=== PATIENT | female | born 1945 | race Caucasian/White ===

== ENCOUNTER 2016-06-23 21:26 | Observation (INO) | payer MEDICARE ==
[~2016-06-23] VITALS: Ht 160 cm; Wt 63.6 kg
--- NOTE | 2016-06-23 23:04 | DIAGNOSTIC IMAGING REPORT ---
PROCEDURE: XR CHEST 2 VIEW INDICATION: Shortness of breath. History of pulmonary fibrosis. Elevated white blood count taking 1600). TECHNIQUE: PA and lateral views. COMPARISON: None. FINDINGS: There is severe interstitial changes in the lungs which appear chronic , although a superimposed acute pneumonia should also be considered. Associated suboptimal inspiration Heart and mediastinum are normal. Thorax is normal. IMPRESSION: 1. Severe interstitial changes with suboptimal inspiration this suggests chronic interstitial fibrosis, although superimposed acute pneumonia should also be considered.
--- NOTE | 2016-06-24 01:50 | ED ORDER SUMMARY ---
..... Patient: RICARDO GAFFNEY OrderSheet [facility] VisitID: [id number] [place] [address] 71y, F Registration Date/Time: 06/23/2016 ORDER SHEET Weight: 63.5 kg (stated) Allergies: No Known Drug Allergy GENERAL ORDERS: CBC w Diff Urgent (21:45 06/23/2016 Momo Sow) (Ack 21:47 AMcQuoid ER Tech1) (22:09 EInderbitzen R.N.) CMP Urgent (21:45 06/23/2016 Momo Sow) (Ack 21:47 AMcQuoid ER Tech1) (22:09 EInderbitzen R.N.) Chest 2V Urgent (22:04 06/23/2016 Momo Sow) (Ack 22:11 AMcQuoid ER Tech1) (22:22 MCampbell) Feeder Catcher Tobacco (Continuous) (Respiratory Distress) (22:05 06/23/2016 Momo Sow) (22:08 EInderbitzen R.N.) Troponin-I Urgent (22:05 06/23/2016 Momo Sow) (22:09 EInderbitzen R.N.) BNP Urgent (22:05 06/23/2016 Momo Sow) (22:09 EInderbitzen R.N.) UA-Culture if indicated Urgent (22:06/23/2016 Momo Sow) (Ack 22:11 AMcQuoid ER Tech1) (0:05 EInderbitzen R.N.) Pulse oximeter (22:05 06/23/2016 Momo Sow) (22:08 EInderbitzen R.N.) Oxygen (2 L/min) (NC) (22:05 06/23/2016 Momo Sow) (22:08 EInderbitzen R.N.) Blood Culture (No) (N/A) Urgent (23:45 06/23/2016 Momo Sow) (Ack 23:57 AMcQuoid ER Tech1) (0:18 KHoerner) MEDICATION ORDERS: IV FLUIDS: IV NS : initial bolus 1000 mL (1000 mL/hr), then none - for X1 (NOW) (21:44 06/23/2016 Momo Sow) (Cancelled: Change in patient [id number] Momo Sow) IV Saline Lock (22:05 06/23/2016 Momo Sow) (22:08 EInderbitralph R.N.) Ceftriaxone IV 2 gm/50mL (NOW) (23:45 06/23/2016 Momo Sow) (0:29 EInderbitzen R.N.) Azithromycin IV 500 mg/250 mL (NOW) (23:45 06/23/2016 Momo Sow) (0:57 EInderbitzen R.N.) ORDER SHEET NOTES: [Electronically signed by Nereida Herring R.N. (02:17 06/24/2016)] [Electronically signed by Mohan Garces Dr. (04:04 06/26/2016)] [Electronically locked/signed by Nereida Herring R.N. (02:17 06/24/2016)]
--- NOTE | 2016-06-24 01:50 | ED ORDER SUMMARY ---
..... Patient: RICARDO GAFFNEY OrderSheet [facility] VisitID: [id number] [place] [address] 71y, F Registration Date/Time: 06/23/2016 ORDER SHEET Weight: 63.5 kg (stated) Allergies: No Known Drug Allergy GENERAL ORDERS: CBC w Diff Urgent (21:45 06/23/2016 Momo Sow) (Ack 21:47 AMcQuoid ER Tech1) (22:09 EInderbitzen R.N.) CMP Urgent (21:45 06/23/2016 Momo Sow) (Ack 21:47 AMcQuoid ER Tech1) (22:09 EInderbitzen R.N.) Chest 2V Urgent (22:04 06/23/2016 Momo Sow) (Ack 22:11 AMcQuoid ER Tech1) (22:22 MCampbell) Bottom Crane Operator (Continuous) (Respiratory Distress) (22:05 06/23/2016 Momo Sow) (22:08 EInderbitzen R.N.) Troponin-I Urgent (22:05 06/23/2016 Momo Sow) (22:09 EInderbitzen R.N.) BNP Urgent (22:05 06/23/2016 Momo Sow) (22:09 EInderbitzen R.N.) UA-Culture if indicated Urgent (22:06/23/2016 Momo Sow) (Ack 22:11 AMcQuoid ER Tech1) (0:05 EInderbitzen R.N.) Pulse oximeter (22:05 06/23/2016 Momo Sow) (22:08 EInderbitzen R.N.) Oxygen (2 L/min) (NC) (22:05 06/23/2016 Momo Sow) (22:08 EInderbitzen R.N.) Blood Culture (No) (N/A) Urgent (23:45 06/23/2016 Momo Sow) (Ack 23:57 AMcQuoid ER Tech1) (0:18 KHoerner) MEDICATION ORDERS: IV FLUIDS: IV NS : initial bolus 1000 mL (1000 mL/hr), then none - for X1 (NOW) (21:44 06/23/2016 Momo Sow) (Cancelled: Change in patient [id number] Momo Sow) IV Saline Lock (22:05 06/23/2016 Momo Sow) (22:08 EInderbitralph R.N.) Ceftriaxone IV 2 gm/50mL (NOW) (23:45 06/23/2016 Momo Sow) (0:29 EInderbitzen R.N.) Azithromycin IV 500 mg/250 mL (NOW) (23:45 06/23/2016 Momo Sow) (0:57 EInderbitzen R.N.) ORDER SHEET NOTES: [Electronically signed by Nereida Herring R.N. (02:17 06/24/2016)] [Electronically signed by Mohan aGrces Dr. (04:04 06/26/2016)] [Electronically locked/signed by Nereida Herring R.N. (02:17 06/24/2016)]
--- NOTE | 2016-06-24 01:50 | ED CLINICAL REPORT ---
Clinical Report - Physicians/Mid Levels [facility] [address] [place] [address] 06/23/2016 21:29 Patient: RICARDO GAFFNEY Time Seen: 2150; initial patient contact. Arrived- By private vehicle. Historian- patient. HISTORY OF PRESENT ILLNESS Chief Complaint: ABNORMAL BLOOD CULTURE. This started today and is still present (staying the same). It was abrupt in onset and has been constant but is not gone now. At its maximum, severity described as moderate. When seen in the E.D., severity described as moderate. Modifying factors. Not worsened by anything. Not relieved by anything. No loss of appetite. (baseline SOB on home O2. No new symptoms. Has been generally weak for the past few days. Did fall about a week ago and hurt tail bone. States the skin is doing fine. Does not want to be checked down there at this time. No other new symptoms.). Similar symptoms previously: None. Recent medical care: The patient was seen recently by a health care provider (urgent care). ( Elevated WBC. Wanted patient to go to the nearest ED.). REVIEW OF SYSTEMS No fever, sore throat, sinus drainage, nasal congestion or cough. No chest pain, abdominal pain, diarrhea, black stools or bloody stools. No difficulty with urination, skin rash or headache. All systems otherwise negative, except as recorded above. PAST HISTORY See nurses notes. Medications: Citalopram Hydrobromide Oral (Tablet 20 mg) 1 tablet, daily. Oxygen 4 liters 23/10. Cholesterol pill. Baby Aspirin 81 mg, daily. Allergies: No Known Drug Allergy. SOCIAL HISTORY Never smoker. No alcohol use or drug use. No recent travel. Is a local resident. PHYSICAL EXAM Appearance: Alert. No acute distress. Eyes: Pupils equal, round and reactive to light. Eyes normal inspection. ENT: Ears normal. Nose normal. Pharynx normal. Neck: Normal inspection. Neck supple. CVS: Normal heart rate and rhythm. Heart sounds normal. Pulses normal. Respiratory: No respiratory distress. Breath sounds normal. Chest nontender. Abdomen: No visible injury. Soft and nontender. Bowel sounds normal. No mass. Skin: Skin warm and dry. Normal skin color. No rash. Normal skin turgor. Extremities: Extremities exhibit normal ROM. No lower extremity edema. Neuro: Oriented X 3. No motor deficit. No sensory deficit. LABS, X-RAYS, AND EKG Chest X-ray: (PROCEDURE: XR CHEST 2 VIEW INDICATION: Shortness of breath. History of pulmonary fibrosis. Elevated white blood count taking 1600). TECHNIQUE: PA and lateral views. COMPARISON: None. FINDINGS: There is severe interstitial changes in the lungs which appear chronic , although a superimposed acute pneumonia should also be considered. Associated suboptimal inspiration Heart and mediastinum are normal. Thorax is normal. IMPRESSION: 1. Severe interstitial changes with suboptimal inspiration this suggests chronic interstitial fibrosis, although superimposed acute pneumonia should also be considered.). Laboratory Tests: UA-Culture if indicated: (UMESH: 06/23/2016 23:40) ( [facility] 06/24/2016 00:04) Final results Test Result Flag Units (Reference) URINE COLOR YELLOW URINE APPEARANCE CLEAR URINE GLUCOSE NEGATIVE (NEGATIVE) URINE BILIRUBIN NEGATIVE (NEGATIVE) URINE KETONE NEGATIVE (NEGATIVE) URINE SPECIFIC GRAVITY 1.020 (1.010-1.030) URINE PH 6.0 (5.0-8.0) URINE PROTEIN NEGATIVE (NEGATIVE) URINE UROBILINOGEN 0.2 EU/dL (0.2-1.0) URINE NITRITE NEGATIVE (NEGATIVE) URINE BLOOD NEGATIVE (NEGATIVE) URINE LEUK ESTERASE POSITIVE (NEGATIVE) URINE RBC NONE SEEN rbc/hpf (0-1) URINE WBC 3-5 wbc/hpf (0-1) URINE EPITHELIAL CELLS 3-5 EPI/hpf (0-5) URINE BACTERIA MODERATE (2+ TO 3+) (NONE SEEN) 2+ URINE COMMENT CULTURE INDICATED URINE CULTURES ARE SET-UP BASED ON THE FOLLOWING CRITERIA:POSITIVE NITRITEPOSITIVE LEUKOCYTE ESTERASEGREATER THAN 10 WHITE BLOOD CELLSMODERATE (2+) OR GREATER BACTERIA CBC w Diff: (UMESH: 06/23/2016 21:55) ( [facility] 06/23/2016 22:05) Final results Test Result Flag Units (Reference) WHITE BLOOD COUNT 18.6 H K/uL (4.5-11.5) RED BLOOD COUNT 3.93 L M/uL (4.00-5.20) HEMOGLOBIN 9.5 L gm/dL (12.0-16.0) HEMATOCRIT 30.2 L % (36.0-46.0) MEAN CELL VOLUME 77 L fL (80-100) MEAN CORPUSCULAR HGB 24 L pg (26-34) MEAN CORPUSCULAR HGB CONC 32 g/dL (31-37) RED CELL DISTRIBUTION WIDTH 14.8 % (11.6-14.8) PLATELET COUNT 586 H K/uL (150-400) NEUTROPHIL % 59.6 % (50-75) LYMPH % 29.0 % (25-40) MONO % 8.2 % (3-14) EOSINOPHIL % 2.9 % (0-4) BASOPHIL % 0.3 % (0-2) BNP: (UMESH: 06/23/2016 21:55) ( [facility] 06/23/2016 22:35) Final results Test Result Flag Units (Reference) B-TYPE NATRIURETIC PEPTIDE 33.8 pg/ml (5-100) Troponin-I: (UMESH: 06/23/2016 21:55) ( [facility] 06/23/2016 22:38) Final results Test Result Flag Units (Reference) TROPONIN I <0.05 ng/mL (0.00-1.5) TROPONIN REFERENCE RANGE:<0.1 NEGATIVE0.1-1.5 INDETERMINANT>1.5 POSITIVE CMP: (UMESH: 06/23/2016 21:55) ( [facility] 06/23/2016 22:16) Final results Test Result Flag Units (Reference) GLUCOSE 153 H mg/dL (70-110) BUN 14 mg/dL (7-18) CREATININE 0.8 mg/dL (0.6-1.3) Estimated GFR >60 mL/min Estimated GFR- >60 mL/min Note: Persistent reduction over 3 months in eGFR<60 mL/min/1.73 m2 defines CKD. Patients with eGFR values>=60 mL/min/1.73 m2 may also have CKD if evidence ofpersistent proteinuria. Additional information may be foundat www.kidney.org. SODIUM 134 L mmol/L (136-145) POTASSIUM 4.5 mmol/L (3.5-5.1) CHLORIDE 98 mmol/L (98-107) CARBON DIOXIDE 30 mmol/L (21-32) CALCIUM 8.8 mg/dL (8.5-10.1) TOTAL PROTEIN 8.4 H g/dL (6.4-8.2) ALBUMIN 2.8 L g/dL (3.3-5.0) BILIRUBIN, TOTAL 0.3 mg/dL (0.0-1.0) ALKALINE PHOSPHATASE 84 U/L (46-116) AST (SGOT) 40 H U/L (15-37) ALT (SGPT) 17 U/L (12-78) . PROGRESS AND PROCEDURES Course of Care: The patient is a pleasant 71-year-old female presenting for evaluation of elevated white blood cell count that was found outside facility. Patient was encouraged to go to the emergency department. Additionally, the patient is also been having increased worsening of her shortness of breath. Patient with a past medical history significant for pulmonary fibrosis. Laboratory evaluation including chest x-ray, urinalysis, complete blood cell count and electorally Parkinson ordered. Patient is agreeable to the treatment and plan. Vital signs aremarkable for the findings above. Of the patient's workup was remarkable for the findings above. Chest x-ray is concerning for bilateral pneumonia. Because of the patient's age and the laboratory studies with elevated white blood cell count, feel the patient is at high risk for acute decompensation if she is to return home. Patient likely with low reserve capacity. Would be concern for poor outcome as an outpatient. I discussion with patient in regards to admission to the hospital. Patient is agreeable. Spoke with the accepting hospitalist. No further recommendations made. Blood cultures as well as antibiotics have been ordered. Discussed with patient and family her workup here in the emergency department as well as plan of care and diagnosis. All questions have been answered. The patient will be admitted to the hospital for further management of herelevated blood pulse ox on and pneumonia. Patient is a stable for patient. Do not feel patient needs to be admitted to the intensive care unit at this time. Prior to patient's department from the emergency department she is noted to be resting in bed in no acute distress. Patient is in good spirits. Disposition: Admitted to Acute Care. (Electronically signed by Mohan Garces Dr. 06/26/2016 4:04)
--- NOTE | 2016-06-24 01:50 | ED NURSING NOTES ---
Clinical Report - Nurses [facility] [address] [place] [address] 06/23/2016 21:29 [id number] Triage time 21:40 Jun 23 2016. Acuity: LEVEL 2. Chief Complaint: (Eval of leukocytosis.). 21:40 06/23/16. SEPSIS SCREEN: Sepsis Screen. Infection suspected/documented. LY COMA SCORE: Sprakers Coma Scale: 15- eyes open spontaneously (4); best verbal response- oriented x 4 (5); best motor response- obeys commands (6). --21:52 Nereida Herring R.N. 21:43 06/23/16. BP: 140/90. HR: 83. RR: 20. O2 saturation: 99% on nasal cannula at 4 liters/minute. Temp: 97.9 F. Pain level now: 5/10. --21:52 Nereida Herring R.N. Weight: 63.5 kg stated. Height/Length: 63 inches Per Patient. BMI: 24.8. --21:40 Nereida Herring R.N. Medications Baby Aspirin 81 mg, daily. --21:48 Nereida Herring R.N. Cholesterol pill. --21:48 Nereida Herring R.N. Oxygen 4 liters 23/10. --21:49 Nereida Herring R.N. Citalopram Hydrobromide Oral (Tablet 20 mg) 1 tablet, daily. --21:53 Nereida Herring R.N. The following entry was struck and corrected by Nereida Herring R.N., 01:13 (06/24/16) Reason for correction - other(correction). <<STRICKEN ENTRY-- Citalopram Hydrobromide Oral. --21:53 Inderbitzen, Nereida, R.N. --END STRIKE>> The following entry was struck and corrected by Nereida Herring R.N., 01:12 (06/24/16) Reason for correction - other(correction). <<STRICKEN ENTRY-- Baby Aspirin. --21:48 Nereida Herring R.N. --END STRIKE>>. Allergies No Known Drug Allergy. --21:47 Nereida Herring R.N. Medication/allergy information source: the patient. --21:52 Nereida Herring R.N. History Arrived by private vehicle. Historian: patient. Accompanied by family. This started today. ( Feeling weak for the past week. Fell 1 wk ago, pain in tailbone. Dtr (RN) sent pt to urgent care for reportedly being pale. Pt reports increase in baseline shortness of breath over last few weeks. Denies chest pain. Urgent care state WBCs over 20K). She has had weakness. She has had a cough (increased frequency, mostly in morning). No fever or skin rash. Denies muscle aches. PAST MEDICAL HX: Immunizations: has received pneumonia vaccine; seasonal influenza. SOCIAL HX: Former smoker. No alcohol use or drug use. No infectious disease exposure. ABUSE ASSESSMENT: No report of abuse. SELF HARM ASSESSMENT: A self harm assessment was performed. The patient answered "no" to the question "Have you recently felt down, depressed, or hopeless?", "Have you noticed less interest or pleasure in doing things?", "Do you have thoughts of harming or killing yourself?", "Are you here because you tried to hurt yourself?", "Have you ever tried to hurt yourself before today?", "Have you recently had thoughts about harming or killing others?" and "Do you have any dangerous items in your possession?". NUTRITIONAL RISK ASSESSMENT: The nutritional risk assessment revealed no deficiencies. LEARNING NEEDS ASSESSMENT: The learning needs assessment revealed no barriers. FUNCTIONAL ASSESSMENT: Functional assessment performed: independent with the activities of daily living; uses walker- this mobility impairment is an ongoing problem; has poor vision in both eyes and wears glasses- this visual impairment is an ongoing problem. SKIN INTEGRITY ASSESSMENT: Skin integrity risk assessment completed. No skin integrity risk identified. --21:52 Nereida Herring R.N. PROBLEMS: Hypercholesterolemia. Gastroesophageal Reflux Disease. Pulmonary Fibrosis. --21:50 Nereida Herring R.N. Depression. --21:53 Nereida Herring R.N. ADDITIONAL SURGERIES: Tubal Ligation. --21:50 Nereida Herring R.N. Interventions ID band on patient. --21:52 Nereida Herring R.N. PHYSICAL ASSESSMENT 21:56 06/23/16. GENERAL / NEURO / PSYCH: Alert. Oriented X 4. HEENT: Pupils equal, round and reactive to light. RESPIRATORY: Respirations not labored. Coarse crackles present in the lower third of both lung cmcray. ( note Dyspnea on exertion). CVS: Pulses within normal limits. GI / : Abdomen soft. SKIN: Skin intact. Skin is warm and dry. Normal skin turgor. --21:56 Nereida Herring R.N. NURSING PROGRESS NOTES 21:53 06/23/16. The initial plan of care for this patient includes an assessment with efforts to address patient positioning; the presence of pain; impairment of the respiratory system. This plan of care was discussed with the patient. Pulse oximeter and NIBP monitor placed on patient; monitor alarms on. Patient gowned. Reassurance given. Two patient identifiers checked. Call light placed in reach. Side rails up x 1. Bed placed in lowest position. Brakes of bed on. Patient ready for evaluation- ED physician notified. --21:53 Nereida Herring R.N. 21:56 06/23/2016 Site #1 started via IV in the left antecubital space with an 20g angiocath, with aseptic technique and good blood return; one attempt. Blood drawn: rainbow set. Labeled in the presence of the patient and sent to the lab. Saline lock flushed with 10 mL saline. --21:56 Nereida Herring R.N. 22:38 06/23/16. BP: 148/77. HR: 90. RR: 18. O2 saturation: 98%. --22:38 Nereida Herring R.N. 22:38 06/23/16. The patient is calm and resting quietly. --22:38 Nereida Herring R.N. 23:45 06/23/16. Patient ID band checked for patient name and birthdate: patient confirmed. Instructions provided to collect clean catch urine and patient verbalized understanding. Clean catch urine collected with return of uriel-colored clear urine; sample sent to lab for urinalysis. Specimen labeled in the presence of the patient. --23:57 Nereida Herring R.N. 00:29 06/24/2016 Started 2 gm of Ceftriaxone IVPB in bag #1 50 mL; at 150 mL/hr over 20 minute(s) via site #1 via IV pump. Allergies verified and confirmed 5 rights. IV patency established. IV site checked: no pain, redness, or swelling. IV flushed thoroughly pre- and post-medication administration. --00:29 Nereida Herrign R.N. 00:37 06/24/16. ( IV site in left AC infiltrated. Small hematoma noted at site. Site DC, pressure dressing applied.). --00:45 Nereida Herring R.N. 00:38 06/24/2016 Site #1 removed. Catheter intact (IV site infiltrated). --00:44 Nereida Herring R.N. 00:40 06/24/2016 Site #2 started via IV in the right hand with an 20g angiocath, with aseptic technique and good blood return; one attempt. Saline lock flushed with 10 mL saline. --00:44 Nereida Herring R.NZeenat 00:56 06/24/2016 Ceftriaxone IVPB Discontinued: completed. Total amount infused: 50 mL. IV patency established. IV site checked: no pain, redness, or swelling. IV flushed thoroughly. --00:56 Nereida Herring R.N. 00:57 06/24/2016 Started 500 mg of Azithromycin IVPB in bag #1 250 mL; at 250 mL/hr over 1 hour(s) via site #2 via IV pump. Allergies verified and confirmed 5 rights. IV patency established. IV site checked: no pain, redness, or swelling. IV flushed thoroughly pre- and post-medication administration. --00:57 Nereida Herring R.N. ( Patient assisted up to restroom with portable oxygen). --01:57 Jackeline La 01:57 06/24/2016 Azithromycin IVPB Discontinued: bag #1 completed. Total amount infused: 250 mL. IV patency established. IV site checked: no pain, redness, or swelling. IV flushed thoroughly. --01:57 BessieJackeline. DISPOSITION / DISCHARGE 02:17 06/24/2016 Site #[address] upon admission; patent. Good blood return present. --02:17 Nereida Herring R.N. 02:17 06/24/16. Departure time: 02:Jun 24 2016. Condition at departure: improved. The goals identified in the patient's plan of care were met. Admitted to Acute Care. Report was given in person. All questions were answered. Report was acknowledged. (to JASON Llamas). Bed requested (206). --02:17 Nereida Herring R.N. 02:17 06/24/16. BP: 131/55. HR: 67. RR: 20. O2 saturation: 100%. Pain level now 10. --02:17 Nereida Herring R.N. Locked/Released at 06/24/2016 2:17 by Nereida Herring R.N.
[2016-06-24 02:43] VITALS: BP 124/71
--- NOTE | 2016-06-24 07:22 | HISTORY AND PHYSICAL ---
ADMITTED: 06/24/2016 CHIEF COMPLAINT: 1. Longstanding pulmonary fibrosis with elevated white blood cell count. HISTORY OF PRESENT ILLNESS: This is a 71-year-old woman who has had longstanding pulmonary fibrosis. She had a visit with her usual doctor on Sunday mid. She had blood testing done. She seemed to be basically at her usual baseline with the pulmonary fibrosis. Nevertheless, she received a call after she left the office that said her white blood cell count was quite high and that she should come into the emergency department. She presented to [facility]. White blood cell count was 18,000. She denied fever or chills or other acute symptoms related to her pulmonary fibrosis. Nevertheless, due to the white blood cell count, she was felt to be a candidate for admission and had blood cultures done. She also had an abnormal urinalysis with positive leukocyte esterase, though she did not have great deal of white blood cells and did not have bacteria in her urine. She generally has her cough productive of only small amounts of clear sputum. This has been the case today with no apparent sputum. She has not felt excessively tired or had unusual fevers or chills. Her exercise tolerance has been basically at her baseline. She does continue with oxygen continuously at 4 L per minute. MEDICAL/SURGICAL HISTORY: Past medical history: Remarkable for pulmonary fibrosis, idiopathic as noted. She also has problems with depression, gastroesophageal reflux, and hyperlipidemia. Past surgical history is remarkable for childbirth x3. She has had 2 colonoscopies. The patient also has had a bilateral tubal ligation. MEDICATIONS: 1. Oxygen at 4 L per minute 2. Citalopram 20 mg daily. 3. Lovastatin 40 mg daily. 4. Aspirin 81 mg daily. ALLERGIES: 1. THE PATIENT HAS NO KNOWN ALLERGIES. SOCIAL HISTORY: The patient is for about 2 years. Her was killed in a motorcycle accident. 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 She had smoked 1/2 pack per day for a number of years but quit about 20 years ago. She does not drink alcohol. FAMILY HISTORY: Indicates that the patient's father around age 72 of dementia, probably Alzheimer type. Her mother at around 84 of basically old age. REVIEW OF SYSTEMS: HEENT is okay. The patient is okay. Respiratory: As noted above. Cardiovascular: Okay with no rapid heartbeats or retrosternal chest pain. Gastrointestinal: Okay with no nausea, vomiting, or diarrhea. Genitourinary: Okay with no frequency or dysuria. She has noticed no blood in urine. Musculoskeletal is okay with no major bone or joint pain problems. Neurologic: Okay with no focal numbness or weakness or confusion. Psychiatric: Remarkable for some ongoing depression following her 's in a motorcycle accident. Skin is okay. PHYSICAL EXAMINATION: GENERAL: Reveals the patient to be a white female, appearing to be of her stated age. She is in no acute distress. VITAL SIGNS: Temperature is 98.4. Pulse is 72. Blood pressure is in the 124/71 range. Oxygen saturation is 100% on 3.5 liters per minute. HEENT: Head is normal. Ear canals and tympanic membranes are normal. Eyes show pupils equal, round, and reactive to light. Nose and throat are clear. NECK: Supple without significant adenopathy. CHEST: Reveals diffuse scattered inspiratory rales and faint wheezes and rhonchi. There are also expiratory rhonchi and a few faint expiratory wheezes. HEART: Reveals normal S1 and S2 with a grade 1/6 systolic murmur. BREASTS: Show no masses. There are no axillary masses or adenopathy. ABDOMEN: Nontender with no organomegaly or mass. Bowel tones are normal. PELVIC AND RECTAL: Not done. EXTREMITIES: Show no edema. Peripheral pulses are +2 dorsalis pedis pulses bilaterally. NEUROLOGIC: Reveals the patient to be alert and oriented x3. Cranial nerves are normal. Motor and sensory exams are normal. SKIN: Normal. LAB/IMAGING: Show hemoglobin 9.5, hematocrit is 30.2, white blood cell count is 18,610 with 59.6% polys and 39% lymphs, 8% monocytes, and 3% eosinophils, platelets are 586,000. Sodium is 134, potassium 4.5, chloride 98, CO2 30, glucose 153, CO2 14. Creatinine 0.8. SGOT is 40, SGPT is 17. Alkaline phosphatase is 84. Urinalysis shows positive leukocyte esterase, but only 3-5 white blood cells and 3.5 epithelial cells, no significant bacteria. Chest x-ray reveals diffuse patchy infiltrates and interstitial changes consistent with pulmonary fibrosis. There could very easily be an associated pneumonia but this is hard to tell for sure. IMPRESSION: 1. The patient is presenting with elevated white blood cell count in the setting of diffuse pulmonary fibrosis. Clinically, she is stable and does not seem to have major infection. Nevertheless, with her elevated white blood cell count, it is appropriate to err on the side of safety and proceed with antibiotic treatment. This was done in the emergency room. She has been given ceftriaxone and azithromycin. PLAN: She will be admitted to observation and will continue with the antibiotics as ordered. She should probably stay. She will keep up with her citalopram and with her aspirin and will keep up with walking. She will restart Lovastatin after she is discharged and this will not be started during this hospitalization.
[2016-06-24 09:53] VITALS: BP 138/64
[2016-06-24 14:18] VITALS: BP 108/67
--- NOTE | 2016-06-24 14:32 | NUR ---
PATIENT VVS, PARTICIPATING IN CARE. UP TO SIDE OF THE BED & WALKING TODAY. TAKING PO WELL. STATES HER COUGH IS SIMILAR TO AT HOME. DRY, NON-PRODUCTIVE. AFEBRILE. DENIES N/V/PAIN. RESTING IN BED NOW. MANY VISITORS THIS AFTERNOON.
--- NOTE | 2016-06-24 17:02 | NUR ---
PT IS A/O, AMBULATORY IN ROOM, NO NEW COMPLAINTS. UP TO CHAIR FOR DINNER.
[2016-06-24 18:18] VITALS: BP 118/85
--- NOTE | 2016-06-24 18:52 | NUR ---
END SHIFT NOTE: PT HAS BEEN STABLE THROUGHOUT THE SHIFT. TOLERATING POC, VSS, AFEBRILE, AMBULATORY. PT REMAINS ON 3.5-4L 02 PER HOME SETTINGS. LUNG SOUNDS ARE COARSE, NO NEW RESPIRATORY SYMPTOMS, PT STATES SHE ALWAYS HAS A SLIGHTLY PRODUCTIVE COUGH. PT OBSERVATION STATUS, PLAN TO DC HOME TOMORROW IF LABS STABLE. PT RECEIVING ROCEPHIN AND ZITHRO.
--- NOTE | 2016-06-24 19:53 | NUR ---
IN BED ON HIGH DIAMOND'S POSITION EATING SNACKS. ON O2 @ 4L PER NC DENIES ANY DISCOMFORT AT THIS TIME.
[2016-06-24 22:18] VITALS: BP 121/65
[2016-06-25 02:51] VITALS: BP 109/62
[2016-06-25 06:36] VITALS: BP 104/54
--- NOTE | 2016-06-25 08:00 | NUR ---
PATIENT SITTING UP IN CHAIR FOR BREAKFAST. STATES SHE USES 4LNC AT HOME. LUNGS WITH CRACKLES IN BILATERAL BASES AND PATIENT STATES THIS IS FROM HER PULMONARY FIBROSIS AND IS HER BASELINE. STATES SHE ONLY WALKS TO KITCHEN AND BATHROOM IN HOUSE AND DID NOT WANT TO AMBULATE IN HALLS TODAY. SEE SHIFT ASSESSMENT FOR FURTHER DETAILS.
[2016-06-25 10:37] VITALS: BP 106/73
--- NOTE | 2016-06-25 11:23 | Progress Note ---
Subjective Constitutional Denies: Fever, Chills, Sweats, Weakness, Malaise. Eyes Denies: Vision Change, Conjunctival Inflammation, Eyelid Inflammation. ENT Denies: Ear Pain, Nose Pain, Nasal Discharge, Nasal Congestion, Throat Pain. Respiratory Cough, Dry, SOB w/exertion, Wheezing. Denies: Hemoptysis, Sputum (NO CHANGE FORM BASELINE). Cardiovascular Denies: Chest Pain, Palpitations, Orthopnea, Edema, Light-headedness. Gastrointestinal Denies: Nausea, Vomiting, Abdominal Pain, Diarrhea, Constipation. Genitourinary Denies: Dysuria, Frequency, Incontinence, Hematuria. Musculoskeletal Back Pain (no change from baseline). Denies: Other. Skin Denies: Rash, Lesions, Jaundice, Bruising. Neurological Denies: Weakness, Numbness, Incoordination, Change in speech, Confusion. Physical Exam Vital Signs / I&Os Vital Signs Date Time Temp Pulse Resp B/P Pulse O2 O2 Flow FiO2 Ox Delivery Rate 06/25 1037 97.9 65 19 106/73 100 Nasal 4.0 Cannula 06/25 0839 4.0 06/25 0802 4.0 06/25 0636 98.8 65 17 104/54 100 Nasal 3.5 Cannula 06/25 0251 98.4 71 15 109/62 100 Nasal 3.5 Cannula 06/24 2218 98.2 72 17 121/65 100 Nasal 3.5 Cannula 06/24 2057 Nasal 3.5 Cannula 06/24 1923 3.5 06/24 1818 98.4 73 18 118/85 100 Nasal 3.5 Cannula 06/24 1659 Nasal 3.5 Cannula 06/24 1418 98.1 78 16 108/67 100 Nasal 3.5 Cannula I&O 06/24 0800 06/24 1600 06/25 0000 Intake Total 200 680 620 Output Total 250 100 650 Balance -50 580 -30 General Appearance Alert, Oriented X3, Cooperative, No acute distress HEENT Normal exam Lungs scattered rales, rhonchi and wheezes, no change from admit exam. Cardiovascular Normal exam, Regular rate and rhythm, Normal S1 and S2, 1/6 SM LSB Abdomen Normal bowel sounds, Soft, No tenderness, No guarding Extremities Normal exam, No cyanosis, No clubbing, No edema, Normal pulses, No tenderness Neurological Normal exam Psych/Mental Status Mental status normal, Mood normal LAB Results Laboratory Tests 06/25 0617 Chemistry Plasma Sodium (136 - 145 mmol/L) 139 Plasma Potassium (3.5 - 5.1 mmol/L) 4.1 Plasma Chloride (98 - 107 mmol/L) 104 CO2 (Enzymatic) (21 - 32 mmol/L) 31 BUN (7 - 18 mg/dL) 12 Creatinine (0.6 - 1.3 mg/dL) 0.7 Est GFR ( Amer) (mL/min) >60 Est GFR (Non-Af Amer) (mL/min) >60 Glucose (70 - 110 mg/dL) 123 Plasma Calcium (8.5 - 10.1 mg/dL) 8.5 Plasma Magnesium (1.8 - 2.4 mg/dL) 2.0 Hematology WBC (4.5 - 11.5 K/uL) 19.8 RBC (4.00 - 5.20 M/uL) 3.55 Hgb (12.0 - 16.0 gm/dL) 8.6 Hct (36.0 - 46.0 %) 27.3 MCV (80 - 100 fL) 77 MCH (26 - 34 pg) 24 RDW (11.6 - 14.8 %) 14.9 Neut % (Auto) (50 - 75 %) 62.9 Lymph % (Auto) (25 - 40 %) 23.6 [place] % (Auto) (3 - 14 %) 7.8 Eos % (Auto) (0 - 4 %) 5.3 Baso % (Auto) (0 - 2 %) 0.4 Plt Count, EDTA (150 - 400 K/uL) 488 PUBS MCHC (31 - 37 g/dL) 32 Assessment and Plan Problem List 1. Leukocytosis Plan WBC remains high. Pt. assymptomatic. Elevation probably not related to infection. 2. Pulmonary fibrosis Plan Lung exam stable. O2 requirement stable. 3. UTI (urinary tract infection) Plan Urine culture--early growth.. Clinically doubt thatg UTI is cause of increased WBC count. Will change to oral levofloxacin and DC home today to FU with eliana WHITE in 10-12d. E&M Codes Discharge: Inpt >30 min spent/[id number]
[2016-06-25] MEDS ORDERED: LEVOFLOXACIN500 MG PO (11:36)
--- NOTE | 2016-06-25 11:52 | Provider's Discharge Care Plan ---
Problem, Goal, Plan Problem List 1. Leukocytosis Goals: Improve disease control, Improve function, Improved health/wellness, Increase independence Instructions: Follow up as directed, Take meds as directed, No obvious cause for elevation. Arrange appt. with usual MD in 10-12 d. Call MD or come to ER for fever, chills, increased cough or SOB. 2. UTI (urinary tract infection) Goals: Improve disease control, Improve function, Improved health/wellness, Increase independence Instructions: Follow up as directed, Increase activity level, Take meds as directed, Begin levolfloxacin 500 mg once daily starting 06/26/16. for low grade UTI. 3. Pulmonary fibrosis Goals: Improve disease control, Improve function, Improved health/wellness, Increase independence Instructions: Follow up as directed, Increase activity level, Continue home O2 at 4L/min. 4. Hyperlipidemia Goals: Improve disease control, Improve function, Improved health/wellness, Increase independence Instructions: Follow up as directed, Increase activity level, Take meds as directed, Continue ? lovastatin at 40 mg daily. , Contiknue aspirin 81 mg daily. 5. Depression Goals: Improve disease control, Improve function, Improved health/wellness, Increase independence Instructions: Follow up as directed, Increase activity level, Take meds as directed, continue citalopram 20 mg daily.
--- NOTE | 2016-06-25 12:54 | NUR ---
DC'D IV, HEMOSTASIS ACHIEVED WITH MANUAL PRESSURE AND SECURED WITH GAUZE AND TAPE. DC INSTRUCTIONS GIVEN TO PATIENT AND PATIENT VERBALIZED UNDERSTANDING. WILL MAKE FOLLOW UP APPT ON SUNDAY DUE TO WEEKEND DISCHARGE. PATIENT TRANSPORTED TO HOME BY FAMILY AND ESCORTED OUT OF BUILDING BY [employer] OFFBEARER.
--- NOTE | 2016-06-26 04:04 | ED MED RECONCILIATION SUMMARY ---
Patient: RICARDO GAFFNEY Medication Reconciliation Report [facility] VisitID: [id number] [address] [place] [address] 71y, F Registration Date/Time: 06/23/2016 Weight: 63.5 kg Height/Length: 63 in. BMI: 24.8 ALLERGIES: No Known Drug Allergy The patient's Home Medications are listed below: THE FOLLOWING MEDICATIONS NEED TO BE RECONCILED: Baby Aspirin 81 mg, daily Cholesterol pill Citalopram Hydrobromide Oral (20 mg) 1 tablet, daily Oxygen 4 liters 23/10 The source(s) of the original Home Medication information: patient The following Medications were given to the patient in the Emergency Department: Ceftriaxone [IVPB] IVPB bolus 0, then 2 gm 150 mL/hr, administered: 06/24/2016 12:29:00 AM Azithromycin [IVPB] IVPB bolus 0, then 500 mg 250 mL/hr, administered: 06/24/2016 12:57:00 AM The following Medications were prescribed to the patient: None.
--- NOTE | 2016-06-26 04:04 | ED MED RECONCILIATION SUMMARY ---
Patient: RICARDO GAFFNEY Medication Reconciliation Report [facility] VisitID: [id number] [address] [place] [address] 71y, F Registration Date/Time: 06/23/2016 Weight: 63.5 kg Height/Length: 63 in. BMI: 24.8 ALLERGIES: No Known Drug Allergy The patient's Home Medications are listed below: THE FOLLOWING MEDICATIONS NEED TO BE RECONCILED: Baby Aspirin 81 mg, daily Cholesterol pill Citalopram Hydrobromide Oral (20 mg) 1 tablet, daily Oxygen 4 liters 23/10 The source(s) of the original Home Medication information: patient The following Medications were given to the patient in the Emergency Department: Ceftriaxone [IVPB] IVPB bolus 0, then 2 gm 150 mL/hr, administered: 06/24/2016 12:29:00 AM Azithromycin [IVPB] IVPB bolus 0, then 500 mg 250 mL/hr, administered: 06/24/2016 12:57:00 AM The following Medications were prescribed to the patient: None.
--- NOTE | 2016-06-26 04:04 | ED MAR SUMMARY ---
..... Medication Administration Record [facility] [address] [place] [address] Patient: RICARDO GAFFNEY Visit ID: [id number] 71y, F Weight: 63.5 kg Height/Length: 63 in BMI: 24.8 ALLERGIES: No Known Drug Allergy Start 00:29 06/24/2016 Nereida Herring R.N., Stop 00:56 06/24/2016 Nereida Herring R.N. Medication Administered: CEFTRIAXONE [IVPB], Dose: 2 gm IVPB over 20 minute(s), Rate: 150 mL/hr, Dispensed: 50 mL bag, Site: #1 left AC. Medication Ordered: Ceftriaxone IV 2 gm/50mL (NOW). Start 00:57 06/24/2016 Nereida Herring RJohana, Stop 01:57 06/24/2016 Jackeline La, Medication Administered: AZITHROMYCIN [IVPB], Dose: 500 mg IVPB over 1 hour(s), Rate: 250 mL/hr, Dispensed: 250 mL bag, Site: #2 right hand. Medication Ordered: Azithromycin IV 500 mg/250 mL (NOW).
--- NOTE | 2016-06-26 04:04 | ED MAR SUMMARY ---
..... Medication Administration Record [facility] [address] [place] [address] Patient: RICARDO GAFFNEY Visit ID: [id number] 71y, F Weight: 63.5 kg Height/Length: 63 in BMI: 24.8 ALLERGIES: No Known Drug Allergy Start 00:29 06/24/2016 Nereida Herring R.N., Stop 00:56 06/24/2016 Nereida Herring R.N. Medication Administered: CEFTRIAXONE [IVPB], Dose: 2 gm IVPB over 20 minute(s), Rate: 150 mL/hr, Dispensed: 50 mL bag, Site: #1 left AC. Medication Ordered: Ceftriaxone IV 2 gm/50mL (NOW). Start 00:57 06/24/2016 Nereida Herring RJohana, Stop 01:57 06/24/2016 Jackeline La, Medication Administered: AZITHROMYCIN [IVPB], Dose: 500 mg IVPB over 1 hour(s), Rate: 250 mL/hr, Dispensed: 250 mL bag, Site: #2 right hand. Medication Ordered: Azithromycin IV 500 mg/250 mL (NOW).
== END 2016-06-25 12:00 | disposition home or self-care (01) ==
LOC: ED SRH 21:26 → TRANS SRH 06-24 01:57 → ACUTE2 SRH 06-24 01:57
PROVIDERS: ADMIT Family Medicine
DX: D72.829 Elevated white blood cell count, unspecified (principal); N39.0 Urinary tract infection, site not specified; J84.112 Idiopathic pulmonary fibrosis; K21.9 Gastro-esophageal reflux disease without esophagitis; E78.5 Hyperlipidemia, unspecified; F32.9 Major depressive disorder, single episode, unspecified; Z87.891 Personal history of nicotine dependence
CPT/HCPCS: 29230; 29244; 29250; 85244; 90004; 90047; 90065; 90074; 90100; 90469; 90616; 91295; 91320; 92668; 92670; 92720; 93004; 95059; 95061